=== PATIENT | male | born 1945 | race African-American/Black ===

== ENCOUNTER 2020-11-24 19:46 | Inpatient (IN) | payer OTHER ==
[~2020-11-24] VITALS: Ht 167.6 cm; Wt 57.2 kg
--- NOTE | ~2020-11-24 | HC ---
[facility] [place] [address] CONSULTATION Name: MANUEL JOSEPH Room #: 456-P ADM IN M.R.#: [id number] Admission: 11/24/20 Attend Phys: Benito Nieves MD Discharge: Date of : 47 Report #: [id number] THIS REPORT FOR: cc: Farideh Calero MD, Nicolle MD Forman,Case Vanessa MD ~ DATE OF SERVICE: 11/25/2020 We were asked to see the patient by Dr. Snyder. HISTORY OF PRESENT ILLNESS: The patient is a 75-year-old with lower extremity arterial occlusive disease. The patient was admitted on 11/24/2020 for a wound healing issue. The patient's wound care physician, Dr. Sales admitted the patient for a nonhealing left lower extremity ulcer. The patient is a longtime resident of [facility]. Since admission, the patient had arteriogram, this shows diffuse arterial occlusive disease with moderate left popliteal artery occlusion and then a severe stenosis at what would be a trifurcation of the distal popliteal artery at the origin of the tibial vessels. There is poor tibial runoff seen with the major vessel being the anterior tibial, distal left peroneal fills by collaterals. On the right side, there is a similar picture with single vessel peroneal runoff. PAST MEDICAL HISTORY: Significant for chronic obstructive pulmonary disease, chronic left lower extremity wound, hypertension, long smoking history, prostate cancer, anemia, diverticulosis, gastroesophageal reflux. We note that the patient had COVID testing in the Emergency Department and this was negative. The patient is currently being treated as an outpatient with doxycycline. For the left lower extremity wound, he received a dose of vancomycin in the Emergency Department. MEDICATIONS: By report includes amlodipine, aspirin, iron, lisinopril, melatonin, multivitamins, pantoprazole, acetaminophen, vitamin C, thiamine. It should be mentioned that the patient is lying in bed, is not communicative. He is in restraints as he was not cooperative earlier and the history is gleaned from the chart. REVIEW OF SYSTEMS: Once again, I have no reason to doubt the review of systems in the chart, but the patient can provide none here. PHYSICAL EXAMINATION: VITAL SIGNS: Temperature 36.8, respiratory rate 18, blood pressure 112/70, [facility] [address] [place] [address] CONSULTATION Name: MANUEL JOSEPH Room #: 456-P [facility] IN M.R.#: [id number] Admission: 11/24/20 Attend Phys: Benito Nieves MD Discharge: Date of : 47 Report #: [id number] heart rate 86, O2 sat 100% on room air. HEENT: No scleral icterus. NECK: No mass. I do not hear any bruit. CHEST: Clear to auscultation. HEART: Rhythm regular, no murmur. ABDOMEN: Soft. EXTREMITIES: No clubbing, cyanosis. There is chronic brawny edema in the left lower extremity from the knee on down and the left ankle is bandaged because of the heel ulcer. VASCULAR: No popliteal, dorsalis pedis or posterior tibial pulses are palpable. Femoral pulses are grade 1-2 bilaterally. PSYCHIATRIC: Not possible to communicate with the patient, does not appear to be oriented. My understanding is that the patient is not ambulatory, but is wheelchair bound. MUSCULOSKELETAL: The patient has contracture of the left lower extremity, some flexion contractures at the hip and the knee and ankle. IMPRESSION: I reviewed the arteriograms with Dr. Snyder. I do not think that the left lower extremity is amenable to surgery. I am afraid that the prospects for success are outweighed by the prospects for failure. Modes of failure would include occlusion of the graft and wound healing issues. All of this would be an attempt to save the extremity in a nonambulatory patient. I reviewed the arteriogram with Dr. Snyder and it may be possible that some intravascular radiographic intervention is possible, but I will certainly defer to him on that score. Thank you for the consult. By: [id number] Case Matt MD /nt
[2020-11-24 19:59] VITALS: BP 98/57
[2020-11-24 22:25] VITALS: BP 114/58
[2020-11-24] MEDS ORDERED: ASA81BEC PO (22:45)
[2020-11-24] MEDS ORDERED: FERRETTS325 MG PO (22:45)
[2020-11-24] MEDS ORDERED: NORVASC 2.5 MG2.5 M1 PO (22:45)
[2020-11-24] MEDS ORDERED: MELATONIN3 M1 PO (22:46)
[2020-11-24] MEDS ORDERED: LISINOPRIL10 MG PO (22:46)
[2020-11-24] MEDS ORDERED: SUPER THERAVIT1 EACH PO (22:46)
[2020-11-24] MEDS ORDERED: TYLENOL325 MG PO (22:47)
[2020-11-24] MEDS ORDERED: PROTONIX 20 MG20 M1 PO (22:47)
[2020-11-24] MEDS ORDERED: B-1100 MG PO (22:48)
[2020-11-24] MEDS ORDERED: VITAMIN C500 M2 PO (22:48)
[2020-11-24 22:58] LABS: ABSOLUTE NEUTROPHILS 3.3 thou/uL (1.4-8.2); BASOPHILS 1.8 % (0.0-2.0); EOSINOPHILS 5.2 % (0.0-3.0); HEMATOCRIT 30.3 % (42.0-52.0); HEMOGLOBIN 9.7 gm/dL (14.0-18.0); LYMPHOCYTES 24.9 % (24.0-44.0); MCH 27.6 pg (26.0-34.0); MCHC 32.1 g/dL (28.0-37.0); MONOCYTES 11.1 % (1.0-8.0); PLATELET COUNT 360 thou/uL (150-400); RBC 3.53 mil/uL (4.50-6.00); RDW 16.3 % (10.5-14.5); WBC 5.9 thou/uL (4.0-11.0)
[2020-11-24 23:10] LABS: CALCIUM 9.6 mg/dL (8.5-10.1); POTASSIUM 4.5 mmol/L (3.5-5.1)
[2020-11-24 23:18] VITALS: BP 108/54
[2020-11-24 23:18] LABS: CREATININE 1.1 mg/dL (0.7-1.3); TOTAL BILIRUBIN 0.4 mg/dL (0.2-1.0); TOTAL PROTEIN 7.7 g/dL (6.4-8.2)
[2020-11-24 23:51] VITALS: BP 125/67
[2020-11-25 00:54] LABS: INR 1.1
--- NOTE | 2020-11-25 02:54 | NUR ---
PT ADMITTED INTO THE UNIT FROM THE ER AT 2330 WITH C/O LT LOWER EXTREMITY WOUND.PT SCHEDULED FOR ANGIOGRAM TODAY MORNING BY DR BAZZI .PT NPO FROM MIDNIGHT FOR PROCEDURE.PT IS FROM [facility].IV ACCESS ON LT AC AND PT MISTAKENLY PULLED IT OUT TRYING TO GET OUT OF BED AND ANOTHER ON PUT ON LT UA WITH NS ST 80CC/HR.WILL CONTINUE TO MONITOR POC
[2020-11-25 03:49] VITALS: BP 126/83
[2020-11-25 06:22] LABS: HEMOGLOBIN 9.8 gm/dL (14.0-18.0); MCHC 32.7 g/dL (28.0-37.0); MCV 85.8 fL (80.0-100.0); RBC 3.49 mil/uL (4.50-6.00); RDW 15.7 % (10.5-14.5); WBC 5.5 thou/uL (4.0-11.0)
[2020-11-25 06:31] LABS: CALCIUM 9.6 mg/dL (8.5-10.1); MAGNESIUM 1.8 mg/dL (1.8-2.4); POTASSIUM 3.7 mmol/L (3.5-5.1)
[2020-11-25 07:35] VITALS: BP 112/70
--- NOTE | 2020-11-25 14:23 | NUR ---
MRSA COLLECTED AND TAKEN TO LAB
--- NOTE | 2020-11-25 14:23 | NUR ---
MRSA COLLECTED AND TAKEN TO LAB
[2020-11-25 16:11] VITALS: BP 114/63
[2020-11-25 20:24] VITALS: BP 128/60
--- NOTE | 2020-11-25 20:33 | NUR ---
ASSUMED CARE OF THE PATIENT AT 0715, PATIENT ALERT WITH CONFUSION AND FORGETFULNESS. PATIENT DENIES PAIN. PATIENT IS NPO FOR ANGIOGRAM. PATIENT LEFT UNIT ABOUT 1100, RETURNED TO THE UNIT AT 1600, REPORT FROM DERIK/CARISA. VOIDS PER URINAL. PATIENT PULLED OUT IV, AND DRESSING TO LEFT GROIN REPLACED. RIGHT LEG DRESSING IN PLACE. REPORT GIVEN TO ASHLEY.
--- NOTE | 2020-11-26 04:56 | NUR ---
PT IS A/O X1 AND IS UP WITH ASSISTANCE TO CHAIR OR W/C. PT IS IMPULSIVE AND HAS DISCHARGED 3 IV'S THIS NOC DUE TO CONFUSION. PT IS PLEASANT AND COOPERATIVE BUT CONFUSED. DRSG TO RIGHT LEG CHANGED AND IS C/D/I AT THIS TIME. DRSG TO LEFT GROIN IS C/D/I. MOVED PT TO ROOM CLOSER TO NURSES STATION TO ALLOW FOR CLOSER MONITORING. FALL PRECAUTIONS IMPLEMENTED, CALL LIGHT IS WITHIN REACH. WILL CONTINUE TO MONITOR.
[2020-11-26 05:24] LABS: HEMATOCRIT 30.3 % (42.0-52.0); MCH 28.2 pg (26.0-34.0); MCHC 32.8 g/dL (28.0-37.0); RBC 3.52 mil/uL (4.50-6.00); RDW 15.6 % (10.5-14.5); WBC 5.1 thou/uL (4.0-11.0)
[2020-11-26 05:41] LABS: CALCIUM 9.7 mg/dL (8.5-10.1); CREATININE 0.9 mg/dL (0.7-1.3); POTASSIUM 3.9 mmol/L (3.5-5.1)
[2020-11-26 07:25] VITALS: BP 114/43
--- NOTE | 2020-11-26 12:08 | NUR ---
PT ADMITTED RELATED TO CHRONIC NONHEALING WOUND OF LLE; PAD. CM REVIEWED CHART AND SPOKE WITH CARE TEAM. CM MET WITH PT AT BEDSIDE THIS DAY. PT WAS ALERT TO SELF AND SITUATION. HE CONFIRMED THAT HE HAD BEEN AT [facility] OF OP SKILLED SKI LIFT OPERATOR. [facility] HAD INDICATED THAT THEY HAD SENT PT OVER AND THAT THEY HAD BEEN ANTICIPATING PT DISCHARGING MONDAY HE HAD ONC REMAINING DAY COVERED AT 100% BY HIS MEDICARE BEFORE HIS COPAY DAYS STARTED. CM MENTIONED THIS TO PT AND HE STATED HE WASN'T AWARE OF THIS AN WASN'T SURE IF WAS GOING TO RETURN HOME OR TO THE FACILITY [place]ON [place]. PT INDIATED THAT PRIOR TO GOING TO [facility] HE HAD BEEN LIVING WITH HIS SISTER IN AN APARTMENT WITH MAYBE 6 STEPS TO ENTER AND NONE INSIDE. PT INIDCATED HE HAD BEEN INDEPENDENT WITH GAIT PRIOR TO SKILLED STAY. CM ATTEMTPED PC X2 TO PT'S SISTER WITH NO ANSWER. PT HAS ANGIOGRAM YESTERDAY. PT TO HAVE LEFT LEG ORECUTANIOUS INTERVENTION TODAY. CM TO FOLLOW INDICATED WITH DC PLANNING.
--- NOTE | 2020-11-26 12:35 | NUR ---
ASSUMED PT CARE THIS AM. PT HAS NO COMPLAINTS OF PAIN. PT USING THE URINAL AND HAS BEEN CONTINENT SO FAR. IV PATENT, FLUIDS INFUSING. NPO FOR ANGIOGRAM TODAY. DRESSING C/D/I. PT AMBULATED AROUND UNIT WITH PT THIS AM WITHOUT ISSUE. FALL PRECAUTIONS IN PLACE.
[2020-11-26 18:15] VITALS: BP 145/77
--- NOTE | 2020-11-26 18:27 | NUR ---
PT RECEIVED FROM SEWER/PACU. PT IS ALERT AND ORIENTED TO SELF. PT HAS RIGHT CATH GROIN SITE WITH MYNX. C/D/I WITH NO HEMATOMA. PT IS IN PAIN AND AGITATED, ATTEMPTS TO SIT UP, BEND LEGS, AND REACH FOR CATH SITE. BEDREST THREE HOURS WILL BE COMPLETE AT 1999. PT HAS FRUIT OR NUT FARMWORKER PRESENT IN ROOM AT THIS TIME. POC: CONTINUE TO MONITOR PT CATH SITE, AND BEHAVIOR. POST CARD CATH VITALS STARTED AT 1830.
[2020-11-26 19:50] VITALS: BP 129/62
[2020-11-26 22:09] VITALS: BP 129/62
[2020-11-27] VITALS (7 sets, daily range): BP systolic 119–140; BP diastolic 53–74
--- NOTE | 2020-11-27 03:43 | NUR ---
PT AOX3, TO PERSON, PLACE, AND TIME. PT REDIRECTABLE IN REGARDS TO SITUATION. PT DENIES PAIN AND SOB WHILE ON ROOM AIR. PT AMBULATING WITH X1 ASSIST BETWEEN BED AND CHAIR. PT NPO AFTER PROCEDURE. ONCALL SOLID WASTE TECHNICIAN NOTIFIED, RECEIVED ORDERS FOR HEART HEALTHY DIET. PT TOLERATING PO INTAKE OF FLUIDS AND HEART HEALTHY DIET WITHOUT ISSUE. PT DENIES NAUSEA. PT VOIDING PER URINAL. PT RESTING IN BED THROUGHOUT SHIFT, FREQUENT REPOSITIONING ENCOURAGED, PT NOTED TO SHIFT INDEPENDENTLY WHILE IN BED. DRESSINGS TO LEFT AND RIGHT GROIN CLEAN, DRY, AND INTACT, NO HEMATOMAS NOTED, SITES REMAIN SOFT. PT ASSESSED WITH WEAK BLE PULSES. SENSATION INTACT TO ALL EXTREMITIES, CAPILLARY REFILL LESS THAN 3SEC IN ALL EXTREMITIES. DRESSING TO LLE REMAINS CLEAN, DRY, AND INTACT. PHARMACY NOTIFIED THIS NURSE THAT 1500 VANCOMYCIN NOT GIVEN MEDICATION NOT AVAILABLE AT THAT TIME, NEW DOSE TIMED AT 0000. PT NOTED TO BE OFF TELE MONITORING, TELE MONITORING INTIATED AT 2210 BY THIS NURSE. PT ENCOURAGED TO NOTIFY STAFF FOR ALL NEEDS, CALL LIGHT WITHIN REACH, BED ALARM ON, BED LOCKED IN LOWEST POSITION, FREQUENT MONITORING WILL CONTINUE.
[2020-11-27 05:34] LABS: HEMATOCRIT 26.9 % (42.0-52.0); HEMOGLOBIN 8.9 gm/dL (14.0-18.0); MCH 28.2 pg (26.0-34.0); MCV 85.4 fL (80.0-100.0); RBC 3.15 mil/uL (4.50-6.00); RDW 15.6 % (10.5-14.5)
[2020-11-27 05:51] LABS: CALCIUM 9.1 mg/dL (8.5-10.1); CREATININE 0.8 mg/dL (0.7-1.3); POTASSIUM 3.9 mmol/L (3.5-5.1)
[2020-11-27] MEDS ORDERED: ZYVOX600 MG PO (09:56)
[2020-11-27] MEDS ORDERED: CLOPIDOGREL75 MG PO (09:56)
--- NOTE | 2020-11-27 14:04 | NUR ---
Pt dcing home today with hh vs going to SNF. The pt and sister indicate that he can not afford the SNF copay as he has used his 20 medicare skilled days and does not have a secondary. [employer] referral initiated for help applying for [place] medicaid as a secondary. Pt's sister Myra indicates that they are not ready for him to go to LTC and will discuss this once he is back home. He lives with his sister Nanette who has mental health issues. Myra will have their brother pick the pt up at 4pm today to help him get into the 2nd story appt and to make sure that Nanette has help getting the place "cleaned up". The apt address is [address] [place] [address] [address], [facility] [address] ([facility] [address] Admitting notified to update the pt's facesheet info. No preference for hh agency but does need to be seen tomorrow. Referral called to [facility] and they can start care tomorrow. Their RN will be out 3xwkly for dressing changes and they will have therapy and EARTH SCIENCE FACULTY MEMBER eval. [employer] to fax the final orders. Sister Myra to be the contact to coordinate the home visits and f/u appts. She is aware that he will need an appt on 11/30 with the wound clinic as well as his pcp. EARTH SCIENCE FACULTY MEMBER requested to help with [place] vik[place] f/u and possible ltc placement if the pt is unable to manage in the home. Siblings appear supportive and can help with shopping and errands. Encouragement given to the pt and sister Myra to consider ltc placement.
--- NOTE | 2020-11-27 16:32 | NUR ---
FAXED DC ORDERS/SUMMARY TO [facility] SPOKE WITH NOÉ IN INTAKE SHE RECEIVED ORDERS AND WILL ARRANGE VISITS WITH PT.
--- NOTE | 2020-11-27 16:50 | NUR ---
ASSESSMENT CHARTED - MEDS PER JAN - PT SEEN BY PHYS AND OCC THERAPY THODAY - PT UP WITH USE OF WALKER AND INTO THE CHAIR. DRESSING TO LEFT ANKLE/MARQUEZ AREA COMPLETED ORDERED. NO CO'S OF PAIN OR NASUEA. NELLIE DIET AND FLUIDS. PT HOME THIS AFTERNOON - INSTRUCTION RE HOME MEDS/ CARE AND FOLLOW UP GIVEN TO PATIENTS BROTHER - STATED UNDERSTANDING OF INSTRUCTION GIVEN. PT TO RETURN TO APT WITH SISTER. PT LEFT UNIT VIA WHEELCHAIR VIA PVT VEHICLE. NO CO'S AT TIME OF D/C
[2020-11-30] MEDS ORDERED: ZYVOX600 MG PO (12:25)
[2020-11-30] MEDS ORDERED: PLAVIX 75 MG TA75 MG PO (12:25)
[2020-12-01] MEDS ORDERED: CLOPIDOGREL75 MG PO (10:11)
[2020-12-01] MEDS ORDERED: PLAVIX 75 MG TA75 MG PO (10:11)
[2020-12-01] MEDS ORDERED: ZYVOX600 MG PO (13:52)
== END 2020-11-27 16:43 | disposition home health service (06) | DRG 270 ==
LOC: ER 19:46 → EROBS 20:40 → 2N 20:40 → 4W 20:40 → 2N 11-26 18:01
PROVIDERS: Nurse Practitioner; Nurse Practitioner Family; ADMIT Hospitalist; ATTEND Hospitalist
PROC: B4181ZZ Fluoroscopy of Bilateral Renal Arteries using Low Osmolar Contrast (ICD-10-PCS; principal; 2020-11-25)
PROC: B41D1ZZ Fluoroscopy of Aorta and Bilateral Lower Extremity Arteries using Low Osmolar Contrast (ICD-10-PCS; principal; 2020-11-25)
PROC: 047L3DZ Dilation of Left Femoral Artery with Intraluminal Device, Percutaneous Approach (ICD-10-PCS; 2020-11-26)
PROC: 04CN3ZZ Extirpation of Matter from Left Popliteal Artery, Percutaneous Approach (ICD-10-PCS; 2020-11-26)
PROC: 04CL3ZZ Extirpation of Matter from Left Femoral Artery, Percutaneous Approach (ICD-10-PCS; 2020-11-26)
PROC: 047N3DZ Dilation of Left Popliteal Artery with Intraluminal Device, Percutaneous Approach (ICD-10-PCS; 2020-11-26)
PROC: 04CQ3ZZ Extirpation of Matter from Left Anterior Tibial Artery, Percutaneous Approach (ICD-10-PCS; 2020-11-26)
PROC: 047Q34Z Dilation of Left Anterior Tibial Artery with Drug-eluting Intraluminal Device, Percutaneous Approach (ICD-10-PCS; 2020-11-26)
DX: I73.9 Peripheral vascular disease, unspecified (principal); E43 Unspecified severe protein-calorie malnutrition; E87.1 Hypo-osmolality and hyponatremia; E44.0 Moderate protein-calorie malnutrition; L97.529 Non-pressure chronic ulcer of other part of left foot with unspecified severity; I77.9 Disorder of arteries and arterioles, unspecified; Z20.822 Contact with and (suspected) exposure to COVID-19; J44.9 Chronic obstructive pulmonary disease, unspecified; I10 Essential (primary) hypertension; K57.90 Diverticulosis of intestine, part unspecified, without perforation or abscess without bleeding; K21.9 Gastro-esophageal reflux disease without esophagitis; G89.29 Other chronic pain; M54.9 Dorsalgia, unspecified; I77.1 Stricture of artery; Z60.2 Problems related to living alone; R63.4 Abnormal weight loss; D50.9 Iron deficiency anemia, unspecified; S81.802A Unspecified open wound, left lower leg, initial encounter; G47.00 Insomnia, unspecified; Z85.46 Personal history of malignant neoplasm of prostate; Z79.82 Long term (current) use of aspirin; Z79.899 Other long term (current) drug therapy; Z68.20 Body mass index [BMI] 20.0-20.9, adult; Z23 Encounter for immunization; X58.XXXA Exposure to other specified factors, initial encounter; Y93.89 Activity, other specified; Y92.89 Other specified places as the place of occurrence of the external cause; Y99.8 Other external cause status
CPT/HCPCS: 10040; 10081; 62110; 62900; 70005